=== PATIENT | male | born 1985 | race Hispanic/Latino ===

== ENCOUNTER 2022-12-13 19:15 | Emergency (ER) | payer SELFPAY ==
[~2022-12-13] VITALS: Ht 177.8 cm; Wt 96.0 kg
[2022-12-13] MEDS ORDERED: MEDDOSEPAK PO (21:34)
[2022-12-13] MEDS ORDERED: EC-NAPROXEN500 MG PO (21:34)
[2022-12-13] MEDS ORDERED: VENTOLIN HFA108 MCG IN (21:34)
[2022-12-14 00:05] VITALS: BP 118/70
== END 2022-12-14 00:15 | disposition home or self-care (01) | DRG 153 ==
LOC: ED 19:15
DX: J11.1 Influenza due to unidentified influenza virus with other respiratory manifestations (principal); Z20.822 Contact with and (suspected) exposure to COVID-19